=== PATIENT | male | born 1950 | race Caucasian/White ===

== ENCOUNTER 2017-01-27 08:37 | Day surgery (SDC) | payer BC ==
[2017-01-26 15:40] VITALS: BMI 42.8
[2017-01-27 09:35] LABS: #Basophils 0.1 thou/uL (0.0-0.2); #Eosinphils 0.3 thou/uL (0.0-0.7); #Lymphocytes 1.4 thou/uL (1.20-3.40); #Monocytes 0.6 thou/uL (0.11-0.59); #Neutrophils 5.3 thou/uL (1.40-6.50); %Basophils 0.8 % (0.0-1.0); %Eosinophils 4.2 % (0.0-10.0); %Lymphocytes 18.4 % (21.0-51.0); %Monocytes 8.3 % (0.0-10.0); Hematocrit 48.6 % (42.0-52.0); Mean Platelet Volume 7.5 fL (7.4-10.4); White Blood Cell (WBC) Count 7.7 thou/uL (4.8-10.8)
[2017-01-27] MEDS ORDERED: Diprivan 20 ML ONE (09:54)
[2017-01-27 09:57] LABS: Anion Gap 11 mmol/L (10-20); BUN (Urea Nitrogen) 17 mg/dL (8.4-25.7); Calc. Creatinine Clearance 130 mL/min (70-130); Calcium 9.1 mg/dL (7.8-10.44); Carbon Dioxide 27 mmol/L (23-31); Chloride 103 mmol/L (98-107); Estimated GFR-MDRD 72
[2017-01-27] MEDS ORDERED: Clindamycin/D5W 600 mg/50 ml Premix Bag ONE (10:01)
[2017-01-27] MEDS ORDERED: Fentanyl 100 MCG/2 ML VIAL ONE (10:13)
[2017-01-27] MEDS ORDERED: Midazolam HCl 2 mg/2 ml Vial ONE (10:13)
--- NOTE | 2017-01-27 10:58 | RAD ---
TWO VIEW CHEST: HISTORY: Preoperative radiograph. COMPARISON: 11/26/2002 FINDINGS: FINDINGS: Two views of the chest show normal sized cardiomediastinal silhouette. There is no evidence of consol idation, mass, or pleural effusion. Degenerative changes are seen in the spine. IMPRESSION: No evidence of acute cardiopulmonary disease. POS: [facility]
[2017-01-27] MEDS ORDERED: Lidocaine 2% w/Epinephrine 1:200K 20 ML VIAL ONE (13:56)
[2017-01-27] MEDS ORDERED: Bupivacaine HCl 0.5%/Epinephrine 1:200,000/PF 30 ml Vial ONE (13:56)
[2017-01-27] MEDS ORDERED: Bupivacaine PF 0.5% 30 ML VIAL ONE (13:56)
[2017-01-27] MEDS ORDERED: Lidocaine 1% PF 5 ML VIAL ONE (14:24)
[2017-01-27] MEDS ORDERED: Ondansetron HCl/PF 4 MG/2 ML Vial ONE (14:24)
[2017-01-27] MEDS ORDERED: Propofol 200 MG/20 ML VIAL ONE (14:24)
--- NOTE | 2017-01-27 16:56 | OP ---
DATE OF PROCEDURE: 01/27/2017 PREOPERATIVE DIAGNOSIS: Left knee medial meniscus tear. POSTOPERATIVE DIAGNOSES: 1. Left knee medial meniscus tear. 2. Grade 4 lesion medial femoral condyle, approximately 1.4 cm from medial and lateral, and approxim ately 7 mm from the AP. SURGEON: Alphonso Goldstein M.D. PRINT PRESS OPERATOR: None. BLOOD LOSS: Minimal. COMPLICATIONS: None. ANESTHETIC: The patient had general anesthetic as well as a local block. DISPOSITION He went to recovery room in stable condition. PROCEDURE: 1. Left knee arthroscopy with partial medial meniscectomy. 2. Chondroplasty of medial femoral condyle. INDICATIONS: A 66-year-old male who comes in complaining of pain, swelling, and catching in the knee . At this time, he has failed nonoperative treatment. DESCRIPTION OF PROCEDURE: After all appropriate consent forms were explained and signed, he was take n to the operating room and at this time was given general anesthetic. Once anesthesia was appropria te, the tourniquet was placed on the left thigh and leg was placed in an arthroscopic leg mckeon. Th e limb was then prepped and draped in standard surgical fashion. Limb was then exsanguinated and rubi rniquet taken up to 300 mmHg. An inferolateral portal was established and the scope was placed into the knee joint. Needle localization technique was then used to make a medial working portal. Diagno stic arthroscopy commenced in the notch. ACL and PCL were probed and found to be intact. The medial compartment showed a grade 4 lesion that was mostly horizontal in nature, but there was some unstabl e chondral flaps and once these were debrided, the overall size of the lesion was approximately 1.4 c m from medial to lateral and about 7 mm from the AP dimension. No other chondral work was necessary. The medial meniscus was found to have degenerative tearing in the body as well as the posterior hor n and a partial meniscectomy was performed using meniscal biter and shaver back to a stable base. Th ere was also some chondral damage on the tibial plateau including some grade II and III changes. The lateral compartment was found to be intact throughout. The patellofemoral joint was found to be int act. No loose bodies were noted in either gutter and at this time, the scope was removed, the knee w as drained, portals were closed with simple nylon stitch. Bulky sterile dressing was then applied an d the tourniquet was let down. Toes pinked up nicely. The patient was awakened and taken to the rec overy room in stable condition. All counts were correct at the end of the case and he received preop erative IV antibiotics.
== END 2017-01-27 14:45 | disposition home or self-care (01) ==
LOC: SDC 08:37
PROVIDERS: ATTEND Orthopaedic Surgery
PROC: 0SBD4ZZ Excision of Left Knee Joint, Percutaneous Endoscopic Approach (ICD-10-PCS; principal; 2017-01-27)
DX: S83.242A Other tear of medial meniscus, current injury, left knee, initial encounter (principal); I10 Essential (primary) hypertension; E78.00 Pure hypercholesterolemia, unspecified; J44.9 Chronic obstructive pulmonary disease, unspecified; I48.91 Unspecified atrial fibrillation; Z88.2 Allergy status to sulfonamides; Z79.82 Long term (current) use of aspirin; Z79.899 Other long term (current) drug therapy; Z98.890 Other specified postprocedural states; Z90.89 Acquired absence of other organs
CPT/HCPCS: 36415; 71020; 80048; 85025; G8978-GP-CI; G8979-GP-CI; G8980-GP-CI; J0670; J2001; J2250; J2405; J2704; J3010; J3490; S0020